=== PATIENT | male | born 1950 | race Caucasian/White ===

== ENCOUNTER 2019-08-06 10:30 | Inpatient (IN) | payer OTHER ==
[~2019-08-06] VITALS: Ht 177.8 cm; Wt 101.6 kg
[2019-08-06 11:40] LABS: BASOPHILS # (AUTO) 0.1 X10'3 (0-0.2); BASOPHILS % (AUTO) 0.8 % (0-1); EOSINOPHILS # (AUTO) 0.2 X10'3 (0-0.9); EOSINOPHILS % (AUTO) 3.2 % (0-6); HEMATOCRIT 43.6 % (42.0-52.0); LYMPHOCYTES # (AUTO) 1.9 X10'3 (1.1-4.8); LYMPHOCYTES % (AUTO) 26.8 % (21-51); MEAN CORPUSCULAR HGB CONC 34.4 g/dL (33.0-36.5); MEAN PLATELET VOLUME 10.8 FL (7.4-10.4); MONOCYTES # (AUTO) 0.6 X10'3 (0-0.9); MONOCYTES % (AUTO) 8.4 % (2-12); NEUTROPHILS # (AUTO) 4.2 X10'3 (1.8-7.7); NEUTROPHILS % (AUTO) 60.8 % (42-75); PLATELET COUNT 173 X10'3 (140-440); RED BLOOD COUNT 4.55 X10'6 (4.70-6.10); RED CELL DISTRIBUTION WIDTH 12.9 % (11.5-14.5)
[2019-08-06 11:56] LABS: ALANINE AMINOTRANSFERASE 51 U/L (12-78); ALBUMIN 3.9 G/DL (3.4-5.0); ALBUMIN/GLOBULIN RATIO 1.1 (1.1-1.5); ALKALINE PHOSPHATASE 116 IU/L (46-116); ANION GAP 8 (8-16); ASPARTATE AMINO TRANSFERASE 29 U/L (10-37); BILIRUBIN,TOTAL 0.5 MG/DL (0.1-1.0); BLOOD UREA NITROGEN 12 MG/DL (7-18); CHLORIDE 106 MMOL/L (99-107); GLUCOSE 205 MG/DL (70-104); LARGE PLATELETS FEW; PLATELET ESTIMATE NORMAL; POTASSIUM 4.3 MMOL/L (3.5-5.1); SODIUM 141 MMOL/L (135-145); TOTAL CARBON DIOXIDE 27.3 MMOL/L (24-32); TOTAL PROTEIN 7.3 G/DL (6.4-8.2); eGFR 74 ML/MIN
[2019-08-06] MEDS ORDERED: ATEN-27 PO (12:45)
[2019-08-06] MEDS ORDERED: OMEP20TA5 PO (12:45)
[2019-08-06] MEDS ORDERED: SIMV20TA PO (12:45)
[2019-08-06] MEDS ORDERED: morphine 2 MG/ML inj. syringe IV PRN ×2 (13:15)
[2019-08-06] MEDS ORDERED: ondansetron/PF 4mg/2ml inj IV PRN (13:15)
[2019-08-06] MEDS ORDERED: magnesium hydroxide 30ml (MOM) UD suspension PO PRN (13:15)
[2019-08-06] MEDS ORDERED: mag hydrox/Alum hydrox/simeth 30ml oral suspension PO PRN (13:15)
[2019-08-06] MEDS ORDERED: magnesium Cl slow-release 64mg tablet PO PRN (13:15)
[2019-08-06] MEDS ORDERED: magnesium 2GM in 50ml NS 50 ML IV PRN (13:15)
[2019-08-06] MEDS ORDERED: magnesium 4gm in 100ml NS 100 ML IV PRN (13:15)
[2019-08-06] MEDS ORDERED: acetaminophen 325mg tablet PO PRN (13:15)
[2019-08-06] MEDS ORDERED: nitroGLYCERIN 0.4mg SUBLingual tab SL PRN (13:20)
[2019-08-06] MEDS: aspirin 81mg tablet.DR PO SCH (13:20)
[2019-08-06] MEDS ORDERED: dextrose 50%-water 50ml dispensing syringe IV PRN ×2 (13:50)
[2019-08-06] MEDS ORDERED: MESSAGE TO PHARMACY PO ONE (13:50)
[2019-08-06] MEDS ORDERED: dextrose ORAL solution 15 GM/59 ML bottle PO PRN ×2 (13:50)
[2019-08-06] MEDS ORDERED: glucagon, human recombinant 1mg kit SUBCUT PRN (13:50)
[2019-08-06] MEDS ORDERED: insulin Lispro (HumaLOG) vial - multi-dose SQ SCH (13:50)
--- NOTE | 2019-08-06 14:38 | NUR ---
RECEIVED REPORT FROM HEIDY VICKERS RN.
[2019-08-06 15:00] VITALS: BP 149/88
[2019-08-06 18:00] VITALS: BP 147/99
--- NOTE | 2019-08-06 18:14 | NUR ---
Patient in room MED 312. I have received report from SIXTO Watson and had the opportunity to ask questions and assume patient care. Patient denies CP, SOB, dizziness, n/v, and rated pain 0/10.
--- NOTE | 2019-08-06 18:14 | NUR ---
Gave report to Boris HENSON and Carmen HENSON.
[2019-08-06] MEDS: insulin glargine (Lantus) pen - multi-dose SQ SCH (21:00)
[2019-08-06 22:00] VITALS: BP 104/62
--- NOTE | 2019-08-06 22:25 | NUR ---
Educated patient in our diabetes protocol; however, patient refused treatment. He is a patient of the [facility] in [place] and [facility]
[2019-08-07] VITALS (15 sets, daily range): BP systolic 103–135; BP diastolic 64–87
[2019-08-07 04:14] LABS: BASOPHILS # (AUTO) 0.1 X10'3 (0-0.2); BASOPHILS % (AUTO) 1.2 % (0-1); EOSINOPHILS # (AUTO) 0.3 X10'3 (0-0.9); EOSINOPHILS % (AUTO) 4.6 % (0-6); HEMATOCRIT 41.3 % (42.0-52.0); HEMOGLOBIN 14.5 g/dl (14.0-17.9); LYMPHOCYTES # (AUTO) 2.5 X10'3 (1.1-4.8); LYMPHOCYTES % (AUTO) 34.4 % (21-51); MEAN CORPUSCULAR HEMOGLOBIN 33.5 PG (27.0-31.0); MEAN CORPUSCULAR HGB CONC 35.1 g/dL (33.0-36.5); MEAN CORPUSCULAR VOLUME 95.4 FL (78-98); MEAN PLATELET VOLUME 10.6 FL (7.4-10.4); MONOCYTES # (AUTO) 0.7 X10'3 (0-0.9); MONOCYTES % (AUTO) 9.4 % (2-12); NEUTROPHILS # (AUTO) 3.6 X10'3 (1.8-7.7); NEUTROPHILS % (AUTO) 50.4 % (42-75); PLATELET COUNT 172 X10'3 (140-440); RED BLOOD COUNT 4.33 X10'6 (4.70-6.10); RED CELL DISTRIBUTION WIDTH 13.4 % (11.5-14.5); WHITE BLOOD COUNT 7.2 X10'3 (4.5-11.0)
[2019-08-07 04:29] LABS: ALANINE AMINOTRANSFERASE 46 U/L (12-78); ALBUMIN 3.6 G/DL (3.4-5.0); ALBUMIN/GLOBULIN RATIO 1.1 (1.1-1.5); ALKALINE PHOSPHATASE 105 IU/L (46-116); ANION GAP 8 (8-16); ASPARTATE AMINO TRANSFERASE 28 U/L (10-37); BILIRUBIN,TOTAL 0.5 MG/DL (0.1-1.0); BLOOD UREA NITROGEN 14 MG/DL (7-18); BUN/CREATININE RATIO 14.7 (5.4-32.0); CALCIUM 8.6 MG/DL (8.5-10.1); CHLORIDE 106 MMOL/L (99-107); CREATININE 0.95 MG/DL (0.60-1.10); GLUCOSE 175 MG/DL (70-104); MAGNESIUM 1.8 MG/DL (1.5-2.4); SODIUM 141 MMOL/L (135-145); TOTAL CARBON DIOXIDE 27.3 MMOL/L (24-32); TOTAL PROTEIN 6.9 G/DL (6.4-8.2); eGFR 78 ML/MIN
[2019-08-07 04:36] LABS: PLATELET ESTIMATE NORMAL
[2019-08-07 04:38] LABS: GIANT PLATELET FEW; LARGE PLATELETS MODERATE
--- NOTE | 2019-08-07 06:00 | NUR ---
Received report from Boris HENSON and Carmen HENSON.
--- NOTE | 2019-08-07 06:13 | NUR ---
Problems reprioritized. Patient report given, questions answered & plan of care reviewed with SIXTO Watson. Patient stable at shift change
--- NOTE | 2019-08-07 06:29 | NUR ---
ORIENTEE documentation: I have reviewed and agree with interventions, assessments performed and documented by SIXTO DE SOUZA. ORIENTEE Medication Administration: For this medication-pass time frame, medication were reviewed, dispensed, administered and documented per hospital policy by SIXTO DE SOUZA .
[2019-08-07] MEDS: aspirin 81mg tablet.DR PO SCH (07:33)
[2019-08-07] MEDS: atenolol 25mg tablet PO SCH (07:35)
[2019-08-07] MEDS: pantoprazole 40mg Tablet.DR PO SCH (07:36)
[2019-08-07] MEDS: atorvastatin 10mg tablet PO SCH (07:36)
[2019-08-07] MEDS ORDERED: enoxaparin 40mg/0.4ml syringe SUBCUT SCH (08:00)
--- NOTE | 2019-08-07 09:28 | NUR ---
DR. MELENDEZ CALLED: NEW ORDERS RECEIVED: KEEP PATIENT NPO, CONSENT FOR HEART CATH WITH DR. MELENDEZ, PREP PATIENT FOR ABOUT 1400 CATH TIME. 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
[2019-08-07] MEDS: normal saline 1000ml 1,000 ML IV SCH ×2 (10:57→20:45)
[2019-08-07] MEDS ORDERED: ASPI-611 PO (11:55)
[2019-08-07] MEDS ORDERED: iohexol 350 MG/ML 50ML vial IV ONE (15:15)
[2019-08-07] MEDS ORDERED: iohexol 350MG/ML 100ml bottle IV ONE (15:15)
[2019-08-07] MEDS ORDERED: LIDOcaine 1% (10mg/ml)w/preservative injection 20ml MDV ONE (15:15)
[2019-08-07] MEDS ORDERED: fentaNYL/PF 50MCG/1 ML 2ML syringe ONE ×2 (15:15→16:09)
[2019-08-07] MEDS ORDERED: midazolam 2 mg/2 ml injection ONE ×3 (15:15→16:09)
--- NOTE | 2019-08-07 15:46 | NUR ---
DM ed: A1c 8, given written DM education handout with verbal review and referral to Saturday morning DM education class (currently on hold however given contact information for when class resumes). Patient is a newly diagnosed DM. Patient needed to go to angio during visit and unable to complete education. Will revisit for verbal review. Addendum: 08/07/19 at [address] Amended: Links added.
--- NOTE | 2019-08-07 15:47 | NUR ---
OFF FLOOR TO GUT DROPPER
--- NOTE | 2019-08-07 15:48 | NUR ---
Escorted to r and d lab technician via W/C for angiogram at this time.
--- NOTE | 2019-08-07 16:34 | NUR ---
Received report on patient from laboratory sampler, patient received angiogram without stent placement, closed with angioseal. Will lay flat for 6 hour from now. Returned back from laboratory sampler at this time.
[2019-08-07] MEDS ORDERED: OXAZEpam 15mg capsule PO PRN (16:55)
[2019-08-07] MEDS ORDERED: normal saline 1000ml 1,000 ML IV SCH (16:55)
[2019-08-07] MEDS ORDERED: nitroGLYCERIN 0.4mg SUBLingual tab SL PRN (16:55)
[2019-08-07] MEDS ORDERED: HYDROcodone/acetaminophen 5mg/325mg tablet PO PRN (16:55)
[2019-08-07] MEDS ORDERED: proCHLORperazine 10 MG/2 ml inj IV PRN (16:55)
[2019-08-07] MEDS ORDERED: ondansetron/PF 4mg/2ml inj IV PRN (16:55)
--- NOTE | 2019-08-07 18:00 | NUR ---
Patient in room MED 312. I have received report from MEREDITH HENSON and had the opportunity to ask questions and assume patient care.
--- NOTE | 2019-08-07 18:24 | NUR ---
Gave report to Agatha HENSON.
[2019-08-07] MEDS: HYDROcodone/acetaminophen 10/325mg tab PO PRN (18:42)
[2019-08-07] MEDS: insulin glargine (Lantus) pen - multi-dose SQ SCH (20:57)
[2019-08-08 02:00] VITALS: BP 119/72
[2019-08-08] MEDS: HYDROcodone/acetaminophen 10/325mg tab PO PRN (02:44)
[2019-08-08 05:56] LABS: BASOPHILS # (AUTO) 0.1 X10'3 (0-0.2); BASOPHILS % (AUTO) 0.8 % (0-1); EOSINOPHILS # (AUTO) 0.3 X10'3 (0-0.9); EOSINOPHILS % (AUTO) 2.9 % (0-6); HEMATOCRIT 40.7 % (42.0-52.0); HEMOGLOBIN 14.3 g/dl (14.0-17.9); LYMPHOCYTES # (AUTO) 2.2 X10'3 (1.1-4.8); LYMPHOCYTES % (AUTO) 21.9 % (21-51); MEAN CORPUSCULAR HGB CONC 35.2 g/dL (33.0-36.5); MEAN CORPUSCULAR VOLUME 96.6 FL (78-98); MEAN PLATELET VOLUME 10.9 FL (7.4-10.4); MONOCYTES # (AUTO) 0.9 X10'3 (0-0.9); MONOCYTES % (AUTO) 9.3 % (2-12); NEUTROPHILS # (AUTO) 6.6 X10'3 (1.8-7.7); NEUTROPHILS % (AUTO) 65.1 % (42-75); PLATELET COUNT 162 X10'3 (140-440); RED BLOOD COUNT 4.21 X10'6 (4.70-6.10); RED CELL DISTRIBUTION WIDTH 13.4 % (11.5-14.5); WHITE BLOOD COUNT 10.1 X10'3 (4.5-11.0)
[2019-08-08 06:00] VITALS: BP 129/77
[2019-08-08 06:05] LABS: ALANINE AMINOTRANSFERASE 42 U/L (12-78); ALBUMIN 3.3 G/DL (3.4-5.0); ALKALINE PHOSPHATASE 98 IU/L (46-116); ANION GAP 9 (8-16); ASPARTATE AMINO TRANSFERASE 26 U/L (10-37); BILIRUBIN,TOTAL 0.5 MG/DL (0.1-1.0); BLOOD UREA NITROGEN 15 MG/DL (7-18); CALCIUM 8.5 MG/DL (8.5-10.1); CHLORIDE 107 MMOL/L (99-107); CREATININE 1.07 MG/DL (0.60-1.10); GLUCOSE 159 MG/DL (70-104); MAGNESIUM 1.6 MG/DL (1.5-2.4); SODIUM 142 MMOL/L (135-145); TOTAL CARBON DIOXIDE 25.8 MMOL/L (24-32); TOTAL PROTEIN 6.5 G/DL (6.4-8.2); eGFR 68 ML/MIN
--- NOTE | 2019-08-08 06:22 | NUR ---
Patient in room MED 312. I have received report from OLLIE HENSON and had the opportunity to ask questions and assume patient care. Addendum: 08/08/19 at 0624 by Agatha Avelar RN Problems reprioritized. Patient report given, questions answered & plan of care reviewed with OLLIE HENSON.
--- NOTE | 2019-08-08 06:24 | NUR ---
Patient in room MED 312. I have received report from SIXTO Snider and had the opportunity to ask questions and assume patient care.
[2019-08-08 07:15] LABS: LARGE PLATELETS FEW; PLATELET ESTIMATE NORMAL
[2019-08-08] MEDS: aspirin 81mg tablet.DR PO SCH (08:18)
[2019-08-08] MEDS: atorvastatin 10mg tablet PO SCH (08:18)
[2019-08-08] MEDS: atenolol 25mg tablet PO SCH (08:20)
[2019-08-08] MEDS: pantoprazole 40mg Tablet.DR PO SCH (08:20)
[2019-08-08] MEDS: normal saline 1000ml 1,000 ML IV SCH (10:08)
[2019-08-08] MEDS ORDERED: METF-950 PO (10:41)
[2019-08-08] MEDS ORDERED: LISI2.5T2 PO (10:41)
[2019-08-08 11:00] VITALS: BP 141/90
--- NOTE | 2019-08-08 12:32 | NUR ---
pt. was discharged from facility at 1213. pt. was wheeled down to private vehicle accompanied by staff and significant other. pt. signed and understood all paperwork. pt. was handed a script for hid medications to get filled at the [facility]. pt. RN offered to sends meds to another pharmacy for more immediate pick-up and pt. refused. pt. IV was d/c intact pt. understands to make f/u appointments and staff gave him the number for Dr. Cole. pt. left with all belongings.
== END 2019-08-08 12:13 | disposition home or self-care (01) | DRG 287 ==
LOC: ER 10:31 → ED HOLD 13:14 → MED 3N 15:00
PROVIDERS: ADMIT Internal Medicine; ATTEND Internal Medicine
PROC: 4A023N7 Measurement of Cardiac Sampling and Pressure, Left Heart, Percutaneous Approach (ICD-10-PCS; principal; 2019-08-07)
PROC: B2111ZZ Fluoroscopy of Multiple Coronary Arteries using Low Osmolar Contrast (ICD-10-PCS; 2019-08-07)
PROC: B2151ZZ Fluoroscopy of Left Heart using Low Osmolar Contrast (ICD-10-PCS; 2019-08-07)
PROC: B41F1ZZ Fluoroscopy of Right Lower Extremity Arteries using Low Osmolar Contrast (ICD-10-PCS; 2019-08-07)
DX: I25.110 Atherosclerotic heart disease of native coronary artery with unstable angina pectoris (principal); E11.65 Type 2 diabetes mellitus with hyperglycemia; E66.9 Obesity, unspecified; E78.00 Pure hypercholesterolemia, unspecified; E78.5 Hyperlipidemia, unspecified; M21.379 Foot drop, unspecified foot; M54.9 Dorsalgia, unspecified; G89.29 Other chronic pain; I10 Essential (primary) hypertension; Z79.01 Long term (current) use of anticoagulants; Z87.891 Personal history of nicotine dependence; Z90.49 Acquired absence of other specified parts of digestive tract; Z95.5 Presence of coronary angioplasty implant and graft; Z68.32 Body mass index [BMI] 32.0-32.9, adult; Z79.899 Other long term (current) drug therapy
CPT/HCPCS: 36415; 71045; 80053; 82948; 83036; 83735; 83880; 84484; 85025; 85610; 87081; 93005; 93306; 93458; 99152; 99153; 99285; A6258; C1760; C1769; G0378; J1644; J1815; J2001; J2250; J3010; J7030; Q9967

== ENCOUNTER 2020-08-19 12:26 | Outpatient (CLI) | payer OTHER ==
[~2020-08-19 12:26] MED LIST: ASPI-611 PO; ATEN-27 PO; LISI2.5T2 PO; OMEP20TA5 PO; SIMV20TA PO
== END 2020-08-19 23:59 | disposition home or self-care (01) ==
LOC: CARD DIAG 12:26
PROVIDERS: ATTEND Orthopaedic Surgery
DX: I35.1 Nonrheumatic aortic (valve) insufficiency (principal)
CPT/HCPCS: 93306